=== PATIENT | female | born 1975 | race Caucasian/White ===

== ENCOUNTER → 2016-04-18 | Outpatient (CLI) | payer BC ==
[2016-04-18 11:40] LABS: Cholesterol 166 mg/dL (<200); HDL Cholesterol 50 mg/dL (40-59); LDL Cholesterol 93 mg/dL (<100); Triglycerides 51 mg/dL (<150)
== END | disposition home or self-care (01) ==
LOC: LAB 08:30
PROVIDERS: ATTEND Specialist
DX: N95.1 Menopausal and female climacteric states (principal)
CPT/HCPCS: 36415; 80061; 83001; 83002; 84443; 87086